=== PATIENT | female | born 1975 | race Caucasian/White ===

== ENCOUNTER 2018-10-13 14:14 | Outpatient (CLI) | payer MEDICAID ==
[2018-10-13] MEDS: LACTATED RINGER'S 1,000 ML IV (16:50)
[2018-10-13 17:29] LABS: ADD UMIC YES; UR ASCORBIC ACID 20 mg/dL (NEGATIVE); UR BACTERIA FEW /HPF (NONE SEEN); UR BILIRUBIN (Dip) NEGATIVE (NEGATIVE); UR BLOOD (Dip) NEGATIVE (NEGATIVE); UR CLARITY SLIGHTLY CLOUDY (CLEAR); UR COLOR YELLOW (YELLOW); UR GLUCOSE (Dip) 3+ mg/dL (NEGATIVE); UR KETONES (Dip) TRACE mg/dL (NEGATIVE); UR LEUKOCYTE ESTERASE (Dip) TRACE Leu/ul (NEGATIVE); UR NITRITE (Dip) POSITIVE (NEGATIVE); UR RBC 0 /HPF (0-5); UR SPECIFIC GRAVITY (Dip) 1.025 (1.003-1.030); UR SQUAMOUS EPITHELIAL CELL FEW /HPF (FEW); UR TOTAL PROTEIN (Dip) NEGATIVE (NEGATIVE); UR UROBILINOGEN (Dip) NEGATIVE (NEGATIVE); UR WBC 14 /HPF (0-5)
== END 2018-10-13 21:52 | disposition home or self-care (01) ==
LOC: OBT 14:14 → L-D 14:15 → OBT 21:52
DX: O36.8130 Decreased fetal movements, third trimester, not applicable or unspecified (principal); O23.43 Unspecified infection of urinary tract in pregnancy, third trimester; Z3A.34 34 weeks gestation of pregnancy
CPT/HCPCS: 36415; 76817; 76818; 81001; 87086; 96360; 96361

== ENCOUNTER 2018-10-26 17:49 | Outpatient (CLI) | payer MEDICAID | END 2018-10-26 20:30 | disposition home or self-care (01) | LOC: OBT 17:49 → L-D 17:51 → OBT 20:30 | DX: O24.414 Gestational diabetes mellitus in pregnancy, insulin controlled (principal); Z3A.36 36 weeks gestation of pregnancy | CPT/HCPCS: 76818; 82962 ==

== ENCOUNTER 2018-10-30 19:39 | Outpatient (CLI) | payer MEDICAID | END 2018-10-31 00:20 | disposition home or self-care (01) | LOC: OBT 19:39 → L-D 19:39 | DX: O24.414 Gestational diabetes mellitus in pregnancy, insulin controlled (principal); O34.219 Maternal care for unspecified type scar from previous cesarean delivery; O09.523 Supervision of elderly multigravida, third trimester; Z3A.37 37 weeks gestation of pregnancy | CPT/HCPCS: 76818 ==

== ENCOUNTER 2018-10-31 16:39 | Inpatient (IN) | payer MEDICAID ==
[2018-10-31] MEDS ORDERED: TERBUTALINE 1 MG/ML INJ SC (19:30)
[2018-10-31] MEDS: LACTATED RINGER'S 1,000 ML IV ×4 (19:31→21:34)
[2018-10-31] MEDS ORDERED: ACETAMINOPHEN 325 MG TAB PO (21:30)
[2018-10-31] MEDS: MAGNESIUM SULFATE 4 GM/100 ML 100 ML IV (21:36)
[2018-10-31 21:52] LABS: ADD MAN DIFF? NO
[2018-10-31 21:55] LABS: BASOPHILS % 0.4 % (0.0-2.0); EOSINOPHILS # 0.1 10^3/ul (0.0-0.5); EOSINOPHILS % 1.1 % (0.0-7.0); HEMATOCRIT 37.9 % (37.0-47.0); HEMOGLOBIN 12.3 g/dl (12.0-16.0); LYMPHOCYTES # 1.8 10^3/ul (0.8-2.9); LYMPHOCYTES % 19.9 % (15.0-51.0); MEAN CORPUSCULAR HEMOGLOBIN 28.1 pg (29.0-33.0); MEAN CORPUSCULAR HGB CONC 32.5 g/dl (32.0-37.0); MEAN CORPUSCULAR VOLUME 86.7 fl (82.0-101.0); MEAN PLATELET VOLUME 12.1 fl (7.4-10.4); MONOCYTE # 0.9 10^3/ul (0.3-0.9); MONOCYTES % 9.5 % (0.0-11.0); NEUTROPHIL # 6.3 10^3/ul (1.6-7.5); NEUTROPHILS % 68.3 % (39.0-77.0); PLATELET COUNT 222 10^3/UL (140-415); RED BLOOD COUNT 4.37 10^6/ul (4.20-5.40); RED CELL DISTRIBUTION WIDTH 15.1 % (11.5-14.5)
[2018-10-31 21:55] LABS: WHITE BLOOD COUNT 9.2 10^3/ul (4.8-10.8)
[2018-10-31 21:58] LABS: INR 0.91; PROTIME 12.4 Sec (11.9-14.9)
[2018-10-31 21:59] LABS: PARTIAL THROMBOPLASTIN TIME 29.8 Sec (23.0-35.0)
[2018-10-31 22:07] LABS: ADD UMIC YES; UR ASCORBIC ACID 20 mg/dL (NEGATIVE); UR BILIRUBIN (Dip) NEGATIVE (NEGATIVE); UR BLOOD (Dip) NEGATIVE (NEGATIVE); UR CLARITY CLEAR (CLEAR); UR COLOR YELLOW (YELLOW); UR GLUCOSE (Dip) 3+ mg/dL (NEGATIVE); UR KETONES (Dip) NEGATIVE (NEGATIVE); UR LEUKOCYTE ESTERASE (Dip) NEGATIVE Leu/ul (NEGATIVE); UR NITRITE (Dip) NEGATIVE (NEGATIVE); UR RBC 1 /HPF (0-5); UR SPECIFIC GRAVITY (Dip) 1.018 (1.003-1.030); UR SQUAMOUS EPITHELIAL CELL FEW /HPF (FEW); UR TOTAL PROTEIN (Dip) 2+ mg/dl (NEGATIVE); UR UROBILINOGEN (Dip) 1+ mg/dL (NEGATIVE); UR WBC 1 /HPF (0-5)
[2018-10-31] MEDS: MAGNESIUM SULFATE 20 GM/500 ML 500 ML IV (22:07)
[2018-10-31] MEDS: DEXTROSE 5%-LR 1,000 ML IV (23:21)
[2018-11-01 01:33] LABS: MAGNESIUM 3.9 mg/dl (1.7-2.5)
[2018-11-01] MEDS: BUTORPHANOL 2 MG INJ IV (02:01)
[2018-11-01 02:25] LABS: ALANINE AMINOTRANSFERASE 15 IU/L (13-69); ALBUMIN 3.2 g/dl (3.3-4.9); ALBUMIN/GLOBULIN RATIO 0.88; ALKALINE PHOSPHATASE 160 IU/L (42-121); ANION GAP 7 (5-13); ASPARTATE AMINO TRANSFERASE 27 IU/L (15-46); BILIRUBIN,INDIRECT 0.3 mg/dl (0-1.1); BILIRUBIN,TOTAL 0.3 mg/dl (0.2-1.3); BLOOD UREA NITROGEN 11 mg/dl (7-20); CALCIUM 8.6 mg/dl (8.4-10.2); CARBON DIOXIDE 20 mmol/L (21-31); CHLORIDE 112 mmol/L (97-110); CREATININE 0.66 mg/dl (0.44-1.00); Estimated GFR > 60 mL/min (>60); GLUCOSE 99 mg/dl (70-220); POTASSIUM 3.8 mmol/L (3.5-5.1); SODIUM 139 mmol/L (135-144); TOTAL PROTEIN 6.8 g/dl (6.1-8.1); URIC ACID 5.6 mg/dl (3.1-7.9)
[2018-11-01 07:39] LABS: MAGNESIUM 5.6 mg/dl (1.7-2.5)
[2018-11-01] MEDS: MAGNESIUM SULFATE 20 GM/500 ML 500 ML IV (07:57)
[2018-11-01] MEDS ORDERED: PRENATAL VITAMIN PO (09:00)
[2018-11-01] MEDS ORDERED: METHYLERGONOVINE 0.2 MG INJ IM ×2 (10:30→22:00)
[2018-11-01] MEDS ORDERED: CEFAZOLIN 2 GM/50 ML (PMX) 50 ML IVPB (10:30)
[2018-11-01] MEDS ORDERED: MISOPROSTOL 200 MCG TAB PR ×2 (10:30→22:00)
[2018-11-01] MEDS ORDERED: OXYTOCIN 30 UNITS/LR 500 ML IV ×2 (10:30→22:00)
[2018-11-01] MEDS ORDERED: CARBOPROST 250 MCG INJ IM ×2 (10:30→22:00)
[2018-11-01 10:43] LABS: ADD MAN DIFF? NO
[2018-11-01 10:46] LABS: BASOPHILS % 0.4 % (0.0-2.0); EOSINOPHILS # 0.1 10^3/ul (0.0-0.5); EOSINOPHILS % 0.8 % (0.0-7.0); HEMATOCRIT 36.5 % (37.0-47.0); HEMOGLOBIN 11.8 g/dl (12.0-16.0); LYMPHOCYTES # 1.4 10^3/ul (0.8-2.9); MEAN CORPUSCULAR HEMOGLOBIN 28.6 pg (29.0-33.0); MEAN CORPUSCULAR HGB CONC 32.3 g/dl (32.0-37.0); MEAN CORPUSCULAR VOLUME 88.6 fl (82.0-101.0); MEAN PLATELET VOLUME 11.6 fl (7.4-10.4); MONOCYTES % 9.6 % (0.0-11.0); NEUTROPHIL # 7.5 10^3/ul (1.6-7.5); NEUTROPHILS % 74.6 % (39.0-77.0); PLATELET COUNT 196 10^3/UL (140-415); RED BLOOD COUNT 4.12 10^6/ul (4.20-5.40); RED CELL DISTRIBUTION WIDTH 15.3 % (11.5-14.5)
[2018-11-01 10:46] LABS: WHITE BLOOD COUNT 10.1 10^3/ul (4.8-10.8)
[2018-11-01 10:49] LABS: INR 0.92; PROTIME 12.5 Sec (11.9-14.9)
[2018-11-01 10:50] LABS: PARTIAL THROMBOPLASTIN TIME 30.8 Sec (23.0-35.0)
[2018-11-01 11:23] LABS: HEPATITIS B SURFACE ANTIGEN NEGATIVE (NEGATIVE)
[2018-11-01 12:34] LABS: MAGNESIUM 5.7 mg/dl (1.7-2.5)
[2018-11-01] MEDS ORDERED: ONDANSETRON 4 MG INJ (14:53)
[2018-11-01] MEDS ORDERED: morphine SULFATE/PF (10 MG/10 ML) INJ (14:53)
[2018-11-01] MEDS ORDERED: PHENYLephrine (100 MCG/ML) 10ML SYG (14:53)
[2018-11-01] MEDS ORDERED: CEFAZOLIN 1 GM INJ (16:24)
[2018-11-01] MEDS ORDERED: MEPERIDINE 25 MG INJ IV (16:30)
[2018-11-01] MEDS ORDERED: ONDANSETRON 4 MG INJ IV ×2 (16:30)
[2018-11-01] MEDS ORDERED: TRIMETHOBENZAMIDE 100 MG/ML VIAL IM ×2 (16:30)
[2018-11-01] MEDS ORDERED: LABETALOL HCL 20MG INJ IV (16:30)
[2018-11-01] MEDS ORDERED: NALOXONE (0.4 MG/ML) INJ IV (16:30)
[2018-11-01] MEDS ORDERED: EPHEDrine 25 MG/5 ML SYG IV (16:30)
[2018-11-01] MEDS ORDERED: NALBUPHINE HCL (10 MG/1 ML) INJ IV (16:30)
[2018-11-01] MEDS ORDERED: OXYCODONE/ACETAMINOPHEN (5/325) TAB PO ×2 (16:30)
[2018-11-01] MEDS ORDERED: IPRATROPIUM (NEB) 0.5 MG/2.5 ML AMP HHN (16:30)
[2018-11-01] MEDS ORDERED: ALBUTEROL 0.083% (NEB) 2.5 MG/3 ML AMP HHN (16:30)
[2018-11-01] MEDS ORDERED: DIPHENHYDRAMINE 50 MG INJ IV ×2 (16:30)
[2018-11-01] MEDS ORDERED: FENTAnyl 50 MCG/ML VIAL IV ×2 (16:30)
[2018-11-01] MEDS ORDERED: morphine 2 MG INJ IV ×2 (16:30)
[2018-11-01] MEDS ORDERED: hydrALAzine 20 MG INJ IV (16:30)
[2018-11-01] MEDS ORDERED: MIDAZOLAM 1 MG/ML 2 ML INJ IV (16:30)
[2018-11-01] MEDS: OXYTOCIN 30 UNITS/LR 500 ML IV ×2 (17:37→22:33)
[2018-11-01] MEDS: KETOROLAC 30 MG INJ IV (19:56)
[2018-11-01] MEDS ORDERED: METHYLERGONOVINE 0.2 MG TAB PO (22:00)
[2018-11-01] MEDS ORDERED: LANOLIN HPA 1 PKT TOP (22:00)
[2018-11-01] MEDS ORDERED: MAGNESIUM HYDROXIDE 30ML CUP PO (22:00)
[2018-11-01] MEDS ORDERED: GLUCOSE GEL 15 GRAM TUBE PO ×2 (22:30)
[2018-11-01] MEDS ORDERED: GLUCOSE GEL 15 GRAM TUBE BUCCAL (22:30)
[2018-11-01] MEDS ORDERED: GLUCAGON 1 MG INJ IM (22:30)
[2018-11-01] MEDS ORDERED: DEXTROSE 50% 50 ML SYRINGE IV ×2 (22:30)
[2018-11-02] MEDS: KETOROLAC 30 MG INJ IV (05:49)
[2018-11-02] MEDS ORDERED: ACCU-CHEK XX ×2 (06:00→10:05)
[2018-11-02] MEDS: DEXTROSE 5%-LR 1,000 ML IV ×4 (07:00→21:51)
[2018-11-02] MEDS: ACCU-CHEK XX ×4 (08:01→17:35)
[2018-11-02 08:02] LABS: ADD MAN DIFF? NO
[2018-11-02] MEDS: INSULIN ASPART [NOVOLOG] 3 ML PEN SC ×4 (08:05→21:00)
[2018-11-02 08:08] LABS: BASOPHILS % 0.3 % (0.0-2.0); EOSINOPHILS # 0.1 10^3/ul (0.0-0.5); EOSINOPHILS % 0.8 % (0.0-7.0); HEMATOCRIT 34.2 % (37.0-47.0); HEMOGLOBIN 10.9 g/dl (12.0-16.0); LYMPHOCYTES # 1.7 10^3/ul (0.8-2.9); LYMPHOCYTES % 16.3 % (15.0-51.0); MEAN CORPUSCULAR HGB CONC 31.9 g/dl (32.0-37.0); MEAN CORPUSCULAR VOLUME 87.9 fl (82.0-101.0); MEAN PLATELET VOLUME 11.4 fl (7.4-10.4); MONOCYTES % 9.6 % (0.0-11.0); NEUTROPHIL # 7.7 10^3/ul (1.6-7.5); NEUTROPHILS % 72.6 % (39.0-77.0); PLATELET COUNT 193 10^3/UL (140-415); RED BLOOD COUNT 3.89 10^6/ul (4.20-5.40); RED CELL DISTRIBUTION WIDTH 15.3 % (11.5-14.5)
[2018-11-02 08:08] LABS: WHITE BLOOD COUNT 10.6 10^3/ul (4.8-10.8)
[2018-11-02 08:23] LABS: MAGNESIUM 2.6 mg/dl (1.7-2.5)
[2018-11-02] MEDS: SENNA/DOCUSATE NA (8.6MG/50MG) TAB PO ×2 (09:00→21:29)
[2018-11-02] MEDS: HYDROCODONE/APAP (5/325) TAB GTB ×2 (15:47→21:29)
[2018-11-02] MEDS: ENOXAPARIN 40 MG/0.4 ML SYG SC (17:56)
[2018-11-02] MEDS: IBUPROFEN 800 MG TAB PO (21:28)
[2018-11-02 22:43] LABS: RAPID PLASMA REAGIN NONREACTIVE (NR)
[2018-11-03] MEDS: IBUPROFEN 800 MG TAB PO ×3 (05:22→21:33)
[2018-11-03] MEDS: HYDROCODONE/APAP (5/325) TAB GTB ×3 (05:23→22:00)
[2018-11-03] MEDS: DEXTROSE 5%-LR 1,000 ML IV (05:51)
[2018-11-03] MEDS: ACCU-CHEK XX ×4 (09:20→21:00)
[2018-11-03] MEDS: INSULIN ASPART [NOVOLOG] 3 ML PEN SC ×4 (09:20→21:43)
[2018-11-03] MEDS: SENNA/DOCUSATE NA (8.6MG/50MG) TAB PO ×2 (09:38→20:22)
[2018-11-03] MEDS: ENOXAPARIN 40 MG/0.4 ML SYG SC (09:39)
[2018-11-03] MEDS: DIPHTH/TET/ACEL PERTUSS (ADULT) 0.5 ML VIAL IM* (18:34)
[2018-11-03] MEDS: HYDROCODONE/APAP (5/325) TAB NGT (19:52)
[2018-11-04] MEDS: IBUPROFEN 800 MG TAB PO ×2 (05:05→15:15)
[2018-11-04] MEDS: INSULIN ASPART [NOVOLOG] 3 ML PEN SC (08:05)
[2018-11-04] MEDS: HYDROCODONE/APAP (5/325) TAB GTB ×2 (08:37→15:15)
[2018-11-04] MEDS: SENNA/DOCUSATE NA (8.6MG/50MG) TAB PO (08:37)
[2018-11-04] MEDS: ENOXAPARIN 40 MG/0.4 ML SYG SC (08:40)
[2018-11-04] MEDS: DIPHTH/TET/ACEL PERTUSS (ADULT) 0.5 ML VIAL IM* (09:00)
[2018-11-04] MEDS: MEASLES,MUMPS,RUBELLA VACCINE INJ SC* (09:00)
== END 2018-11-04 18:39 | disposition home or self-care (01) | DRG 783 ==
LOC: OBT 16:39 → L-D 16:39 → OBT 21:00 → PP1 11-01 21:19 → L-D 21:00
PROVIDERS: Obstetrics & Gynecology
PROC: 10D00Z1 Extraction of Products of Conception, Low, Open Approach (ICD-10-PCS; principal; 2018-11-01 15:15)
PROC: 0UT70ZZ Resection of Bilateral Fallopian Tubes, Open Approach (ICD-10-PCS; 2018-11-01 15:15)
DX: O65.5 Obstructed labor due to abnormality of maternal pelvic organs (principal); O60.13X0 Preterm labor second trimester with preterm delivery third trimester, not applicable or unspecified; O34.211 Maternal care for low transverse scar from previous cesarean delivery; O99.214 Obesity complicating childbirth; O24.429 Gestational diabetes mellitus in childbirth, unspecified control; Z3A.36 36 weeks gestation of pregnancy; Z37.0 Single live birth; Z30.2 Encounter for sterilization
CPT/HCPCS: 36415; 76818; 80053; 81001; 82962; 83036; 83735; 84560; 85025; 85610; 85730; 86592; 86850; 86900; 86901; 87086; 87340; 88302; 90715; 96360; 99464

== ENCOUNTER 2018-12-05 21:13 | Emergency (ER) | payer MEDICAID ==
[2018-12-05 22:27] LABS: ADD MAN DIFF? NO
[2018-12-05 22:29] LABS: WHITE BLOOD COUNT 7.6 10^3/ul (4.8-10.8)
[2018-12-05 22:29] LABS: BASOPHILS % 0.5 % (0.0-2.0); EOSINOPHILS # 0.4 10^3/ul (0.0-0.5); HEMATOCRIT 39.9 % (37.0-47.0); HEMOGLOBIN 13.3 g/dl (12.0-16.0); LYMPHOCYTES # 2.4 10^3/ul (0.8-2.9); LYMPHOCYTES % 31.7 % (15.0-51.0); MEAN CORPUSCULAR HEMOGLOBIN 28.2 pg (29.0-33.0); MEAN CORPUSCULAR HGB CONC 33.3 g/dl (32.0-37.0); MEAN CORPUSCULAR VOLUME 84.7 fl (82.0-101.0); MEAN PLATELET VOLUME 10.2 fl (7.4-10.4); MONOCYTE # 0.7 10^3/ul (0.3-0.9); NEUTROPHILS % 53.4 % (39.0-77.0); PLATELET COUNT 273 10^3/UL (140-415); RED BLOOD COUNT 4.71 10^6/ul (4.20-5.40); RED CELL DISTRIBUTION WIDTH 13.7 % (11.5-14.5)
[2018-12-05 22:37] LABS: ADD UMIC YES; UR ASCORBIC ACID NEGATIVE (NEGATIVE); UR BILIRUBIN (Dip) NEGATIVE (NEGATIVE); UR BLOOD (Dip) 3+ mg/dL (NEGATIVE); UR CLARITY CLEAR (CLEAR); UR COLOR STRAW (YELLOW); UR GLUCOSE (Dip) NEGATIVE (NEGATIVE); UR KETONES (Dip) NEGATIVE (NEGATIVE); UR LEUKOCYTE ESTERASE (Dip) 1+ Leu/ul (NEGATIVE); UR NITRITE (Dip) NEGATIVE (NEGATIVE); UR RBC 24 /HPF (0-5); UR SPECIFIC GRAVITY (Dip) 1.011 (1.003-1.030); UR SQUAMOUS EPITHELIAL CELL FEW /HPF (FEW); UR TOTAL PROTEIN (Dip) NEGATIVE (NEGATIVE); UR UROBILINOGEN (Dip) NEGATIVE (NEGATIVE); UR WBC 31 /HPF (0-5)
[2018-12-05 22:51] LABS: ANION GAP 11 (5-13); BLOOD UREA NITROGEN 14 mg/dl (7-20); CALCIUM 10.1 mg/dl (8.4-10.2); CARBON DIOXIDE 26 mmol/L (21-31); CHLORIDE 103 mmol/L (97-110); Estimated GFR > 60 mL/min (>60); GLUCOSE 162 mg/dl (70-220); POTASSIUM 4.1 mmol/L (3.5-5.1); SODIUM 140 mmol/L (135-144)
== END 2018-12-05 23:33 | disposition home or self-care (01) ==
LOC: FTE 21:13
DX: O86.20 Urinary tract infection following delivery, unspecified (principal); B96.89 Other specified bacterial agents as the cause of diseases classified elsewhere
CPT/HCPCS: 36415; 76830; 76856; 80048; 81001; 85025; 99284-25